=== PATIENT | male | born 1995 | race Caucasian/White ===

== ENCOUNTER 2017-07-15 04:59 | Emergency (ER) | payer OTHER ==
[~2017-07-15] VITALS: Ht 175.3 cm; Wt 83.9 kg
[~2017-07-15 04:59] MED LIST: ACETAMINOPHEN-1 EAC1 PO; CLEOCIN HCL150 MG PO; DOXYCYCLINE 10100 MG PO; IBUPROFEN 600600 M1 PO; IBUPROFEN 800800 M1 PO; KEFLEX500 MG PO; NOHOMEMEDICATIONS; NORCO 5-325 TA1 EACH PO; PERCOCET 5-3251 EACH PO; PREDNISONE 20 M20 MG PO; VALIUM5 MG PO
[2017-07-15 05:19] LABS: ABSOLUTE BASOPHILS 0.1 thou/uL (0.0-0.2); ABSOLUTE LYMPHOCYTES 1.8 thou/uL (0.8-5.3); ABSOLUTE MONOCYTES 0.8 thou/uL (0.0-1.2); ABSOLUTE NEUTROPHILS 9.2 thou/uL (1.6-8.1); BASOPHILS 0.6 %; EOSINOPHILS 0.3 %; HEMOGLOBIN 17.5 gm/dL (14.0-18.0); LYMPHOCYTES 14.9 %; MCH 28.6 pg (26.0-34.0); MCHC 34.3 g/dL (28.0-37.0); MCV 83.2 fL (80.0-100.0); NUCLEATED RBCS 0 /100WBC; PLATELET COUNT* 245 thou/uL (150-400); POLYS 77.2 %; RBC 6.13 mil/uL (4.50-6.00); RDW-CV 13.6 % (10.5-14.5)
[2017-07-15 05:48] LABS: CALCIUM 9.2 mg/dL (8.5-10.1); POTASSIUM 3.7 mmol/L (3.5-5.1)
[2017-07-15 05:53] LABS: TOTAL BILIRUBIN 0.5 mg/dL (<0.1-1.0)
[2017-07-15 06:00] LABS: URINE BILIRUBIN NEGATIVE (Negative); URINE BLOOD NEGATIVE (Negative); URINE CLARITY CLEAR; URINE COLOR STRAW; URINE GLUCOSE-RANDOM NEGATIVE (Negative); URINE KETONES NEGATIVE (Negative); URINE LEUKOCYTES-REFLEX NEGATIVE (Negative); URINE NITRITE-REFLEX NEGATIVE (Negative); URINE PROTEIN NEGATIVE (Negative); URINE SPECIFIC GRAVITY <= 1.005 (1.005-1.030); URINE UROBILINOGEN 0.2 E.U./dl (0.2-1.0)
[2017-07-15 06:30] LABS: AMP/METHAMP Negative (Negative); BARBITURATES Negative (Negative); BENZODIAZEPINES Negative (Negative); COCAINE Negative (Negative); METHADONE Negative (Negative); OPIATES Negative (Negative); PCP Negative (Negative); THC POSITIVE (Negative)
[2017-07-15 06:43] VITALS: BP 145/78
== END 2017-07-15 06:44 | disposition home or self-care (01) ==
LOC: M.ERS 04:59
PROVIDERS: Emergency Medicine
DX: F10.120 Alcohol abuse with intoxication, uncomplicated (principal); F41.9 Anxiety disorder, unspecified

== ENCOUNTER 2019-10-20 18:33 | Emergency (ER) | payer OTHER ==
[~2019-10-20] VITALS: Ht 175.3 cm; Wt 74.8 kg
[2019-10-20] MEDS ORDERED: CLINDAMYCIN HC150 MG PO (19:04)
[2019-10-20] MEDS ORDERED: MAGIC MOUTHWASH SWISH&SPIT (19:04)
[2019-10-20 19:11] VITALS: BP 148/81
== END 2019-10-20 19:14 | disposition home or self-care (01) ==
LOC: M.ERS 18:33
DX: S02.5XXA Fracture of tooth (traumatic), initial encounter for closed fracture (principal); K04.7 Periapical abscess without sinus; K05.10 Chronic gingivitis, plaque induced; X58.XXXA Exposure to other specified factors, initial encounter; Y93.89 Activity, other specified; Y92.89 Other specified places as the place of occurrence of the external cause; Y99.8 Other external cause status

== ENCOUNTER 2020-01-23 16:56 | Emergency (ER) | payer OTHER ==
[~2020-01-23] VITALS: Ht 175.3 cm; Wt 74.8 kg
[~2020-01-23 16:56] MED LIST changes: +CLINDAMYCIN HC150 MG PO; +MAGIC MOUTHWASH SWISH&SPIT
[2020-01-23] MEDS ORDERED: CIPROFLOXIN HC2.5 M1 OTIC (17:31)
[2020-01-23] MEDS ORDERED: AMOXICILLIN 50500 MG PO (17:31)
[2020-01-23] MEDS ORDERED: TYLENOL WITH CO1 TA1 PO (17:31)
[2020-01-23 17:38] VITALS: BP 146/72
== END 2020-01-23 17:39 | disposition home or self-care (01) ==
LOC: M.ERS 16:56
DX: H66.92 Otitis media, unspecified, left ear (principal); H60.92 Unspecified otitis externa, left ear